=== PATIENT | female | born 1950 | race Caucasian/White ===

== ENCOUNTER 2017-08-06 09:49 | Day surgery (SDC) | payer OTHER, BC ==
[2017-08-06] MEDS ORDERED: NS 500 ML IV 500 ML IV ONE (10:07)
[2017-08-06] MEDS ORDERED: TETRACAINE 0.5% OPHTH 1 DOSE AFFEYE ONE ×2 (10:22→13:12)
[2017-08-06] MEDS ORDERED: VIGAMOX 0.5% OPHTH 1 DOSE AFFEYE ONE ×5 (10:23→13:47)
[2017-08-06] MEDS ORDERED: PROLENSA OPHTH 1 DOSE AFFEYE ONE (10:34)
[2017-08-06] MEDS ORDERED: ALPHAGAN-P OPHTH 1 DOSE AFFEYE ONE (10:35)
[2017-08-06] MEDS ORDERED: CYCLOGYL 1% OPHTH 1 DOSE OP ONE ×4 (10:36→10:39)
[2017-08-06] MEDS ORDERED: MYDRIACIL OPHTH 1 DOSE AFFEYE ONE ×4 (10:36→10:39)
[2017-08-06] MEDS ORDERED: AK-DILATE 2.5% OPHTH 1 DOSE OP ONE ×4 (10:36→10:39)
[2017-08-06] MEDS ORDERED: VERSED ONE ×2 (12:53→16:00)
[2017-08-06] MEDS ORDERED: BETADINE OPHTH SOLN 5% EACHEYE ONE (13:12)
[2017-08-06] MEDS ORDERED: XYLOCAINE-MPF 1% IJ ONE ×2 (13:12→13:33)
[2017-08-06] MEDS ORDERED: ADRENALINE CHL INJ IJ ONE ×2 (13:12→13:33)
[2017-08-06] MEDS ORDERED: DUOVISC IO ONE ×2 (13:12→13:33)
[2017-08-06] MEDS ORDERED: BSS OPHTH (PLAIN) 500 ML with VANCOMYCIN HCL 500 MG VIAL 25 MG, ADRENALINE CHL INJ 1 MG IR ONE ×6 (13:13)
[2017-08-06 14:14] VITALS: BP 130/64
[2017-08-06] MEDS ORDERED: DIPRIVAN VIAL ONE (16:00)
== END 2017-08-06 14:10 | disposition home or self-care (01) ==
LOC: SURG1 09:49
PROVIDERS: ATTEND Ophthalmology
PROC: 08DJ3ZZ Extraction of Right Lens, Percutaneous Approach (ICD-10-PCS; principal; 2017-08-06 15:45)
PROC: 08RJ3JZ Replacement of Right Lens with Synthetic Substitute, Percutaneous Approach (ICD-10-PCS; principal; 2017-08-06 15:45)
DX: H25.11 Age-related nuclear cataract, right eye (principal); H25.011 Cortical age-related cataract, right eye; H52.221 Regular astigmatism, right eye
CPT/HCPCS: A4217; J0170; J2250; J3370; J3490